=== PATIENT | male | born 1985 | race Caucasian/White ===

== ENCOUNTER 2021-12-28 00:32 | Emergency (ER) | payer BC ==
[~2021-12-28] VITALS: Ht 185.4 cm; Wt 136.4 kg
[2021-12-28 00:35] VITALS: TEMP 98.4
[2021-12-28 00:58] LABS: BASO # 0.1 K/mm3 (0.0-0.2); BASO % 0.6 % (0.0-2.0); EOS # 0.2 K/mm3 (0.0-0.7); EOS % 1.4 % (0.0-4.0); GRAN # 8.2 K/mm3 (1.4-6.5); GRAN % 65.3 % (42.2-75.2); HEMATOCRIT 47.3 % (42.0-52.0); HEMOGLOBIN 16.1 g/dl (13.5-18.0); LYMPH % 24.3 % (20.0-51.0); MEAN CELL VOLUME 87 fl (80.0-100.0); MEAN CORPUSCULAR HEMOGLOBIN 30 pg (27-31); MEAN CORPUSCULAR HGB CONC 34 g/dl (33.0-37.0); MEAN PLATELET VOLUME 10.8 fl (7.4-10.4); MONO % 8.2 % (1.7-9.3); PLATELET COUNT 221 K/mm3 (130-400); RED BLOOD COUNT 5.41 M/mm3 (4.20-5.60); REDCELL DISTRIBUTION WIDTH-CV 12.9 % (11.5-14.5)
[2021-12-28 01:13] LABS: ALANINE AMINOTRANSFERASE 38 U/L (0-55); ALBUMIN 3.9 gm/dL (3.5-5.0); ALKALINE PHOSPHATASE 88 U/L (40-150); ANION GAP 9 mmol/L (7-16); AST,SGOT 31 U/L (5-34); BILIRUBIN,TOTAL 0.4 mg/dL (0.2-1.2); BLOOD UREA NITROGEN 15 mg/dL (9-21); CALCIUM 8.7 mg/dL (8.4-10.2); CARBON DIOXIDE 23 mmol/L (22-29); CHLORIDE 108 mmol/L (98-107); GLUCOSE 142 mg/dL (70-99); POTASSIUM 3.3 mmol/L (3.5-4.5); SODIUM 140 mmol/L (136-145); TOTAL PROTEIN 7.4 gm/dL (6.2-8.1)
[2021-12-28 01:29] LABS: TROPONIN-I < 0.010 ng/mL (0.00-0.033)
[2021-12-28 01:33] LABS: TSH w REFLEX 2.913 uIU/mL (0.350-4.940)
[2021-12-28 01:55] LABS: COLLECTION METHOD CLEAN CATCH
[2021-12-28 02:02] LABS: MUCOUS Present (NOT PRESENT); PH 7 (5-8); SQUAMOUS EPITHELIAL 0-2 /hpf (0-10); URINE APPEARANCE Clear (CLEAR/HAZY); URINE BACTERIA Rare /hpf (NONE SEEN); URINE BILIRUBIN Negative (NEGATIVE); URINE BLOOD Negative (NEGATIVE); URINE COLOR Straw (YELLOW); URINE GLUCOSE Negative (NEGATIVE); URINE KETONE Negative (NEGATIVE); URINE LEUKOCYTE ESTERASE Negative (NEGATIVE); URINE NITRATE Negative (NEGATIVE); URINE PROTEIN(semi-quant) Negative (NEGATIVE); URINE RBC 0-2 /hpf (0-2); URINE UROBILINOGEN Negative (NEGATIVE)
[2021-12-28 02:16] LABS: TRICYCLIC ANTIDEPRESS URINE NEGATIVE
[2021-12-28 02:48] VITALS: BP 143/85; PULSE 78
[2021-12-28] MEDS ORDERED: LOPRESSOR 225 MG/TAB PO (10:21)
[2021-12-28] MEDS ORDERED: ASPIRIN E.C. 8181 MG PO (10:21)
== END 2021-12-28 02:48 | disposition home or self-care (01) ==
LOC: COL.ER 00:32
PROVIDERS: Emergency Medicine
DX: I48.91 Unspecified atrial fibrillation (principal); Z28.310 Unvaccinated for COVID-19
CPT/HCPCS: J2060

== ENCOUNTER 2021-12-28 08:41 | Emergency (ER) | payer BC ==
[~2021-12-28] VITALS: Ht 185.4 cm; Wt 136.4 kg
[2021-12-28 08:46] VITALS: TEMP 98.3
[2021-12-28] MEDS ORDERED: LOPRESSOR 225 MG/TAB PO (10:21)
[2021-12-28] MEDS ORDERED: ASPIRIN E.C. 8181 MG PO (10:21)
[2021-12-28 10:30] VITALS: BP 130/85; PULSE 63
== END 2021-12-28 10:31 | disposition home or self-care (01) ==
LOC: COL.ER 08:41
DX: I48.0 Paroxysmal atrial fibrillation (principal); E87.6 Hypokalemia

== ENCOUNTER 2023-01-03 21:17 | Emergency (ER) | payer OTHER ==
[~2023-01-03] VITALS: Ht 185.4 cm; Wt 123.6 kg
[~2023-01-03 21:17] MED LIST: ASPIRIN E.C. 8181 MG PO; LOPRESSOR 225 MG/TAB PO
[2023-01-03 21:21] VITALS: TEMP 97.7
[2023-01-03 21:52] LABS: BASO # 0.1 K/mm3 (0.0-0.2); BASO % 0.7 % (0.0-2.0); EOS # 0.1 K/mm3 (0.0-0.7); EOS % 0.7 % (0.0-4.0); GRAN # 7.9 K/mm3 (1.4-6.5); GRAN % 70.2 % (42.2-75.2); HEMATOCRIT 43.5 % (42.0-52.0); HEMOGLOBIN 15.3 g/dl (13.5-18.0); LYMPH # 2.4 K/mm3 (1.2-3.4); MEAN CELL VOLUME 86 fl (80.0-100.0); MEAN CORPUSCULAR HEMOGLOBIN 30 pg (27-31); MEAN CORPUSCULAR HGB CONC 35 g/dl (33.0-37.0); MEAN PLATELET VOLUME 10.5 fl (7.4-10.4); MONO # 0.8 K/mm3 (0.1-0.6); MONO % 7.1 % (1.7-9.3); PLATELET COUNT 240 K/mm3 (130-400); RED BLOOD COUNT 5.05 M/mm3 (4.20-5.60); REDCELL DISTRIBUTION WIDTH-CV 12.8 % (11.5-14.5)
[2023-01-03 22:06] LABS: ANION GAP 13 mmol/L (7-16); BLOOD UREA NITROGEN 12 mg/dL (9-21); CALCIUM 9.6 mg/dL (8.4-10.2); CARBON DIOXIDE 20 mmol/L (22-29); CHLORIDE 107 mmol/L (98-107); CREATININE, serum 0.89 mg/dL (0.72-1.25); GLUCOSE 98 mg/dL (70-99); POTASSIUM 3.8 mmol/L (3.5-4.5); SODIUM 140 mmol/L (136-145)
[2023-01-03 22:13] LABS: TROPONIN-I < 0.010 ng/mL (0.00-0.033)
[2023-01-03] MEDS ORDERED: NORVASC 5MG5 MG/TAB PO (22:36)
[2023-01-03] MEDS ORDERED: ATARAX 25MG25 MG/TAB PO (22:36)
[2023-01-03 22:58] VITALS: BP 161/91; PULSE 64
== END 2023-01-03 22:59 | disposition home or self-care (01) ==
LOC: COL.ER 21:17
PROVIDERS: Emergency Medicine
DX: I10 Essential (primary) hypertension (principal); Z28.310 Unvaccinated for COVID-19